=== PATIENT | female | born 1985 | race Caucasian/White ===

== ENCOUNTER 2016-04-25 01:17 | Emergency (ER) | payer OTHER ==
--- NOTE | 2016-04-25 01:53 | PDOC ---
History of Present Illness - History of Present Illness Initial Comments: 04/25/16 02:13 The patient is a 30 year old female, , with no significant past medical history, who presents to the emergency department with abdominal pain since yesterday morning. The patient states she ate a Snickers bar and developed an immediate sudden onset of sharp, intermittent abdominal cramping localized to the bilateral upper abdominal quadrants. She denies experiencing this pain in the past. She reports taking motrin for pain with minimal relief. She denies chest pain, shortness of breath, headache and dizziness. She denies fever, chills, nausea, vomit, diarrhea and constipation. She denies dysuria, frequency, urgency and hematuria. Allergies: NKDA Social history: Denies toxic habits PCP - Dr. Perera <Meena Diaz - Last Filed: 04/25/16 02:13> <Sal Locke - Last Filed: 04/26/16 00:07> - General Stated Complaint: STOMACH PAIN Past History <Meena Diaz - Last Filed: 04/25/16 02:13> - Reproductive History (#): 4 Para: 4 Cervical CA: No Dysfunctional Uterine Bleeding: No Ectopic : No Endometrial CA: No Polycystic Ovaries: No Tubal Ligation: No - Immunization History Immunization Up to Date: Yes - Psycho/Social/Smoking Cessation Hx Anxiety: No Suicidal Ideation: No Smoking Status: Yes Smoking History: Current every day smoker Have you smoked in the past 12 months: Yes Number of Cigarettes Smoked Daily: 12 'Breaking Loose' booklet given: 05/24/13 Hx Alcohol Use: No Drug/Substance Use Hx: No Substance Use Type: None <Sal Locke - Last Filed: 04/26/16 00:07> - Past Medical History Allergies/Adverse Reactions: Allergies Allergy/AdvReac Type Severity Reaction Status Date / Time No Known Allergies Allergy Verified 04/25/16 02:04 Home Medications: Ambulatory Orders NK [No Known Home Medication] 05/19/15 Review of Systems - Review of Systems Able to Perform ROS?: Yes Comments:: 04/25/16 02:13 CONSTITUTIONAL: Absent: fever, chills, diaphoresis, generalized weakness, malaise, loss of appetite HEENT: Absent: rhinorrhea, nasal congestion, throat pain, throat swelling, difficulty swallowing, mouth swelling, ear pain, eye pain, visual Changes CARDIOVASCULAR: Absent: chest pain, syncope, palpitations, irregular heart rate, lightheadedness , peripheral edema RESPIRATORY: Absent: cough, shortness of breath, dyspnea with exertion, orthopnea, wheezing, stridor, hemoptysis GASTROINTESTINAL: (+) RUQ and LUQ abdominal pain. Absent: abdominal distension, nausea, vomiting, diarrhea, constipation, melena, hematochezia GENITOURINARY: Absent: dysuria, frequency, urgency, hesitancy, hematuria, flank pain, genital pain MUSCULOSKELETAL: Absent: myalgia, arthralgia, joint swelling SKIN: Absent: rash, itching, pallor HEMATOLOGIC/IMMUNOLOGIC: Absent: easy bleeding, easy bruising, lymphadenopathy, frequent infections ENDOCRINE: Absent: unexplained weight gain, unexplained weight loss, heat intolerance, cold intolerance NEUROLOGIC: Absent: headache, focal weakness or paresthesias, dizziness, unsteady gait, seizure, mental status changes, bladder or bowel incontinence PSYCHIATRIC: Absent: anxiety, depression, suicidal or homicidal ideation, hallucinations. <Meena Diaz - Last Filed: 04/25/16 02:13> *Physical Exam - Vital Signs Last Vital Signs Temp Pulse Resp BP Pulse Ox 98.0 F 90 20 113/67 97 04/25/16 02:05 04/25/16 02:05 04/25/16 02:05 04/25/16 02:05 04/25/16 02:05 - Physical Exam Comments: 04/25/16 02:13 GENERAL: Well developed, well nourished. Awake and alert. No acute distress. HEENT: Normocephalic, atraumatic. PERRLA, EOMI. No conjunctival pallor. Sclera are non- icteric. Moist mucous membranes. Oropharynx is clear. NECK: Supple. Full ROM. No JVD. Carotid pulses 2+ and symmetric, without bruits. No thyromegaly. No lymphadenopathy. CARDIOVASCULAR: Regular rate and rhythm. No murmurs, rubs, or gallops. Distal pulses are 2+ and symmetric. PULMONARY: No evidence of respiratory distress. Lungs clear to auscultation bilaterally. No wheezing, rales or rhonchi. ABDOMINAL: (+) right upper quadrant and periumbilical tenderness to palpation. Soft. Non- distended. No rebound or guarding. No organomegaly. Normoactive bowel sounds. MUSCULOSKELETAL Normal range of motion at all joints. No bony deformities or tenderness. No CVA tenderness. EXTREMITIES: No cyanosis. No clubbing. No edema. No calf tenderness. SKIN: Warm and dry. Normal capillary refill. No rashes. No jaundice. NEUROLOGICAL: Alert, awake, appropriate. Cranial nerves 2-12 intact. Normoreflexic in the upper and lower extremities. Normal speech. Toes are down-going bilaterally. Gait is normal without ataxia. PSYCHIATRIC: Cooperative. Good eye contact. Appropriate mood and affect. <Meena Diaz - Last Filed: 04/25/16 02:13> ED Treatment Course - LABORATORY CBC & Chemistry Diagram: 04/25/16 02:12 04/25/16 02:12 <Sal Locke - Last Filed: 04/26/16 00:07> *DC/Admit/Observation/Transfer - Attestations Scribe Attestion: 04/25/16 02:14 Documentation prepared by Meena Diaz, acting as medical coding specialist for Sal Locke MD, MD <Meena Diaz - Last Filed: 04/25/16 02:13> - Discharge Dispostion Admit: No <Sal Locke - Last Filed: 04/26/16 00:07> Diagnosis at time of Disposition: Generalized abdominal pain - Discharge Dispostion Disposition: HOME Condition at time of disposition: Improved - Referrals Referrals: Larry Dsouza MD [Staff Physician] - Jade Perera MD [Primary Care Provider] - - Patient Instructions Printed Discharge Instructions: DI for Gastritis Additional Instructions: Activity as tolerated. Stay hydrated. Advance diet as tolerated, avoiding dairy , spicy or fatty foods, caffeine and alcohol. Blood tests, a urine test, and an ultrasound of the gallbladder showed no acute abnormalities today. Your symptoms may have been due to gastritis or dysmotility , as discussed. Take Pepcid as needed as an antacid, this is available over-the- counter. You should follow up with Dr. Darryl Quinteros and a data control assistant (consider calling Dr. Dsouza) as soon as possible regarding today's emergency department visit. Return to the emergency department for any new or concerning symptoms, particularly persistent or worsening pain, vomiting or diarrhea, fevers or chills. - Post Discharge Activity Work/School Note: Back to Work
[2016-04-25] MEDS ORDERED: FAMOTIDINE 20 MG/50 ML IVPB 50 ML IVPB ONE ×2 (01:55→02:17)
[2016-04-25] MEDS ORDERED: METOCLOPRAMIDE HCL INJECTION 10 MG/2 ML VIAL IVPB ONE (01:55)
[2016-04-25] MEDS ORDERED: SODIUM CHLORIDE 1,000 ML IV SCH (02:00)
[2016-04-25 02:11] VITALS: BMI 24.0
[2016-04-25] MEDS ORDERED: METOCLOPRAMIDE HCL INJECTION 10 MG/2 ML VIAL ONE (02:17)
[2016-04-25 02:20] LABS: BASOPHIL 0.5 % (0-2.0); EOSINOPHIL 0.9 % (0-4.5); MCH 31.4 pg (25.7-33.7); MCHC 33.5 g/dl (32.0-36.0); MEAN CELL VOLUME 93.9 fl (80-96); MEAN PLT VOLUME 9.9 fl (7.5-11.1); NEUTROPHILS 76.4 % (42.8-82.8); PLATELET COUNT 155 K/MM3 (134-434); RDW 13.7 % (11.6-15.6); WHITE BLOOD COUNT 10.1 K/mm3 (4.0-10.0)
[2016-04-25 02:30] LABS: URINE APPEARANCE CLEAR; URINE BILIRUBIN NEGATIVE (NEGATIVE); URINE BLOOD NEGATIVE (NEGATIVE); URINE COLOR YELLOW; URINE GLUCOSE (UA) NEGATIVE (NEGATIVE); URINE KETONE TRACE (NEGATIVE); URINE LEUK ESTERASE NEGATIVE (NEGATIVE); URINE NITRITE NEGATIVE (NEGATIVE); URINE PROTEIN NEGATIVE (NEGATIVE); URINE UROBILINOGEN 4.0 E.U/dl E.U./dl (0.2-1.0)
[2016-04-25 02:48] LABS: ANION GAP 9 (8-16); BILIRUBIN,TOTAL 0.8 mg/dL (0.2-1.0); CALCIUM 9.2 mg/dL (8.5-10.1); CO2 28 mmol/L (21-32); CREATININE 0.7 mg/dL (0.55-1.02); GLUCOSE,RANDOM 122 mg/dL (74-106); SGOT/AST 15 U/L (15-37); SGPT/ALT 13 U/L (12-78)
[2016-04-25 02:49] LABS: ALK PHOS 35 U/L (45-117)
[2016-04-25 10:12] VITALS: BP 113/69; PULSE 88; TEMP 98.3
--- NOTE | 2016-04-25 10:26 | PDOC ---
*Physical Exam - Vital Signs Last Vital Signs Temp Pulse Resp BP Pulse Ox 98.3 F 88 18 113/69 100 04/25/16 10:11 04/25/16 10:11 04/25/16 10:11 04/25/16 10:11 04/25/16 10:11 - Physical Exam Comments: 04/25/16 10:23 vital signs normal. Abdomen is soft/nontender/nondistended. No guarding or rebound, no CVA tenderness. Patient is well-appearing, tolerating by mouth, comfortable ED Treatment Course - LABORATORY CBC & Chemistry Diagram: 04/25/16 02:12 04/25/16 02:12 - ADDITIONAL ORDERS Additional order review: Laboratory Results 04/25/16 04/25/16 02:20 02:12 Sodium 140 Potassium 3.6 Chloride 103 Carbon Dioxide 28 Anion Gap 9 BUN 14 D Creatinine 0.7 D Creat Clearance w eGFR > 60 Random Glucose 122 H D Calcium 9.2 Total Bilirubin 0.8 AST 15 ALT 13 Alkaline Phosphatase 35 L D Total Protein 7.0 Albumin 4.0 Lipase 104 Urine Color Yellow Urine Appearance Clear Urine pH 5.0 Ur Specific [place] 1.033 Urine Protein Negative Urine Glucose (UA) Negative Urine Ketones Trace H Urine Blood Negative Urine Nitrite Negative Urine Bilirubin Negative Urine Urobilinogen 4.0 e.u/dl H Ur Leukocyte Esterase Negative Urine HCG, Qual Negative 04/25/16 02:12 RBC 3.76 MCV 93.9 MCHC 33.5 RDW 13.7 MPV 9.9 Neutrophils % 76.4 Lymphocytes % 14.8 Monocytes % 7.4 Eosinophils % 0.9 Basophils % 0.5 - Medications Given in the ED: ED Medications Discontinued Medications Generic Name Dose Route Start Last Admin Trade Name Freq PRN Reason Stop Dose Admin Famotidine/Sodium Chloride 50 mls @ 100 mls/hr 04/25/16 01:55 04/25/16 02:31 Pepcid 20 Mg Premixed Ivpb - IVPB 04/25/16 02:24 100 mls/hr ONCE ONE Administration Metoclopramide HCl 10 mg 04/25/16 01:55 04/25/16 02:31 Reglan Injection - IVPB 04/25/16 01:56 10 mg ONCE ONE Administration Medical Decision Making - Medical Decision Making 04/25/16 10:23 Received signout on this otherwise healthy 30-year-old female with no severe past medical history, history of bilateral tubal ligation who presented with abdominal pain. Labs were within normal limits, urinalysis and urine were negative, plan at signout was to check abdominal ultrasound and discharge if no cholecystitis. Ultrasound normal, no gallstones. Patient reassessed, abdomen benign. Tolerating by mouth. Question gastritis versus dysmotility, will start on Pepcid and referred to GI. Understands return criteria. *DC/Admit/Observation/Transfer Diagnosis at time of Disposition: Generalized abdominal pain - Discharge Dispostion Disposition: HOME Condition at time of disposition: Improved - Referrals Referrals: Jade Perera MD [Primary Care Provider] - Larry Dsouza MD [Staff Physician] - - Patient Instructions Printed Discharge Instructions: DI for Gastritis Additional Instructions: Activity as tolerated. Stay hydrated. Advance diet as tolerated, avoiding dairy , spicy or fatty foods, caffeine and alcohol. Blood tests, a urine test, and an ultrasound of the gallbladder showed no acute abnormalities today. Your symptoms may have been due to gastritis or dysmotility , as discussed. Take Pepcid as needed as an antacid, this is available over-the- counter. You should follow up with Dr. Darryl Quinteros and a web applications programmer (consider calling Dr. Dsouza) as soon as possible regarding today's emergency department visit. Return to the emergency department for any new or concerning symptoms, particularly persistent or worsening pain, vomiting or diarrhea, fevers or chills. - Post Discharge Activity Work/School Note: Back to Work
== END 2016-04-25 10:43 | disposition home or self-care (01) ==
LOC: JER 01:17
PROC: 3E0337Z Introduction of Electrolytic and Water Balance Substance into Peripheral Vein, Percutaneous Approach (ICD-10-PCS; principal; 2016-04-25)
PROC: 3E033GC Introduction of Other Therapeutic Substance into Peripheral Vein, Percutaneous Approach (ICD-10-PCS; 2016-04-25)
DX: K29.70 Gastritis, unspecified, without bleeding (principal)
CPT/HCPCS: 36415; 76705-TC; 80053; 81003; 83690; 84703; 85025; 87077; 87086; 96361; 96365; 96375; 99282-25

== ENCOUNTER 2017-07-23 18:17 | Emergency (ER) | payer OTHER ==
[2017-07-23 18:32] VITALS: BP 108/62; PULSE 83; TEMP 98.5; BMI 21.2
[2017-07-23] MEDS ORDERED: ACETAMINOPHEN 500 MG TABLET (FP) PO ONE (19:21)
[2017-07-23] MEDS ORDERED: ACETAMINOPHEN 325 MG TABLET (FP) ONE (19:23)
--- NOTE | 2017-07-23 19:28 | PDOC ---
History of Present Illness - General Chief Complaint: Sore Throat Stated Complaint: PAIN Time Seen by Provider: 07/23/17 18:43 History Source: Patient Exam Limitations: No Limitations - History of Present Illness Initial Comments: 07/23/17 19:26 this is a 31-year-old woman past medical history rosacea and migraines who presents emergency Department with 2 days of sore throat and 1 day of frontal headaches and nausea. Patient denies any fevers. Patient states her current headache is 6/10 she took Motrin prior to arrival which helped alleviate some of the pain. She states the pain is not consistent with her usual migraine headache. She denies any blurry vision, dizziness, lightheadedness, chest pain, shortness of breath. Past History - Past Medical History Allergies/Adverse Reactions: Allergies Allergy/AdvReac Type Severity Reaction Status Date / Time No Known Allergies Allergy Verified 07/23/17 18:28 Home Medications: Ambulatory Orders NK [No Known Home Medication] 05/19/15 COPD: No Other medical history: MIGRANE - Reproductive History (#): 4 Para: 4 Cervical CA: No Dysfunctional Uterine Bleeding: No Ectopic : No Endometrial CA: No Polycystic Ovaries: No Tubal Ligation: No - Immunization History Immunization Up to Date: Yes - Suicide/Smoking/Psychosocial Hx Smoking Status: Yes Smoking History: Former smoker Have you smoked in the past 12 months: No Number of Cigarettes Smoked Daily: 12 Information on smoking cessation initiated: No 'Breaking Loose' booklet given: 05/24/13 Hx Alcohol Use: No Drug/Substance Use Hx: No Substance Use Type: None Review of Systems - Review of Systems Able to Perform ROS?: Yes Is the patient limited Setswana proficient: No Constitutional: No: Symptoms Reported HEENTM: Yes: See HPI Respiratory: Yes: See HPI Cardiac (ROS): No: Symptoms Reported ABD/GI: Yes: See HPI : No: Symptoms Reported Musculoskeletal: No: Symptoms Reported Integumentary: No: Symptoms Reported Neurological: Yes: See HPI Endocrine: No: Symptoms Reported Hematologic/Lymphatic: No: Symptoms Reported *Physical Exam - Vital Signs Last Vital Signs Temp Pulse Resp BP Pulse Ox 98.5 F 83 19 108/62 97 07/23/17 18:28 07/23/17 18:28 07/23/17 18:28 07/23/17 18:28 07/23/17 18:28 - Physical Exam General Appearance: Yes: Appropriately Dressed. No: Apparent Distress HEENT: positive: Pharyngeal Erythema, Nasal Congestion, Sinus Tenderness. negative: Tonsillar Exudate, Tonsillar Erythema Neck: positive: Trachea midline, Lymphadenopathy (R), Lymphadenopathy (L) Respiratory/Chest: positive: Lungs Clear, Normal Breath Sounds. negative: Respiratory Distress, Accessory Muscle Use Cardiovascular: positive: Regular Rhythm, Regular Rate. negative: Murmur Gastrointestinal/Abdominal: positive: Normal Bowel Sounds, Soft. negative: Tender Musculoskeletal: positive: Normal Inspection. negative: CVA Tenderness Extremity: positive: Normal Inspection Integumentary: positive: Normal Color Neurologic: positive: tapper bit II-XII NML intact, Fully Oriented, Alert, Normal Mood/ Affect, Normal Response, Motor Strength 07/15 Medical Decision Making - Medical Decision Making 07/23/17 19:23 A/P: 31-year-old woman with history of migraines and rosacea presents emergency Department with sore throat for 2 days and frontal headache and nausea for 1 to Pharyngeal erythema noted no tonsillar erythema or exudates present Maxillary sinus tenderness present Laboratory data 3. Cranial 2 through 12 grossly intact. Steady gait Lungs clear to auscultation bilaterally Rapid strep testing, Tylenol, reassess 07/23/17 19:50 Rapid strep testing is negative. Patient states her headache is improved after receiving the Tylenol. Headache results likely from current menstruation. I'll instruct the patient to keep well-hydrated and to take Tylenol or Motrin to help relieve symptoms of both the headache and also the sore throat. Was explained to the patient that formal culture may be positive and at that time we will call her prescribed antibiotics. Patient verbalizes understanding of discharge instructions. *DC/Admit/Observation/Transfer Diagnosis at time of Disposition: Viral syndrome Menstrual headache Qualifiers: Status migrainosus presence: without status migrainosus Intractability: not intractable Qualified Code(s): G43.829 - Menstrual migraine, not intractable, without status migrainosus - Discharge Dispostion Disposition: HOME Condition at time of disposition: Fair Decision to Admit order: No - Referrals - Patient Instructions Additional Instructions: Rest, drink lots of fluids: Teas, water, soups, Pedialyte Saltwater gargles Steamy showers/seem to face break up mucus Avoid contact with others until fevers and cough resolved Lots of handwashing and good hygiene Continue [id number] medications for symptomatic relief Tylenol or Motrin for fever and pain Followup with private physician in one to 2 days as needed Return to emergency department for worsened symptoms, fevers, dehydration - Post Discharge Activity
== END 2017-07-23 20:07 | disposition home or self-care (01) ==
LOC: JERFT 18:17
DX: G43.829 Menstrual migraine, not intractable, without status migrainosus (principal); L71.9 Rosacea, unspecified
CPT/HCPCS: 87070; 87430; 99281-25

== ENCOUNTER 2020-12-25 20:50 | Emergency (ER) | payer OTHER ==
[2020-12-25] MEDS ORDERED: ACETAMINOPHEN 500 MG TABLET (FP) PO ONE (21:12)
[2020-12-25 21:13] VITALS: BP 113/57; PULSE 79; TEMP 99.2; BMI 22.8
[2020-12-25] MEDS ORDERED: ACETAMINOPHEN 500 MG TABLET (FP) ONE (21:15)
== END 2020-12-26 00:03 | disposition home or self-care (01) ==
LOC: FER 20:50
DX: S16.1XXA Strain of muscle, fascia and tendon at neck level, initial encounter (principal); V49.9XXA Car occupant (driver) (passenger) injured in unspecified traffic accident, initial encounter
CPT/HCPCS: 70450-TC; 72125-TC; 99284-25

== ENCOUNTER 2020-12-27 12:22 | Emergency (ER) | payer OTHER ==
[2020-12-27 12:46] VITALS: BP 105/69; PULSE 83; TEMP 98; BMI 22.8
== END 2020-12-27 17:30 | disposition home or self-care (01) ==
LOC: JERFT 12:22
DX: M25.551 Pain in right hip (principal)
CPT/HCPCS: 73523-TC-FY; 99284-25

== ENCOUNTER 2022-05-03 15:50 | Emergency (ER) | payer OTHER ==
[2022-05-03 16:01] VITALS: BP 125/61; RESP 16; TEMP 98; BMI 24.0
[2022-05-03 17:12] VITALS: PULSE 87
[2022-05-03] MEDS ORDERED: predniSONE 20 MG TABLET (UD) PO ONE (17:13)
[2022-05-03 17:20] LABS: BASO % 0.5 % (0-2.0); HEMATOCRIT 38.5 % (32.4-45.2); HEMOGLOBIN 12.8 GM/dL (10.7-15.3); LYMPH % 15.3 % (8-40); MCH 30.8 pg (25.7-33.7); MCHC 33.3 g/dl (32.0-36.0); MEAN CELL VOLUME 92.5 fl (80-96); MEAN PLT VOLUME 9.2 fl (7.5-11.1); NEUT % 75.2 % (42.8-82.8); PLATELET COUNT 250 10^3/uL (134-434); RBC 4.17 M/mm3 (3.60-5.2); RDW 13.9 % (11.6-15.6); WHITE BLOOD COUNT 9.2 K/mm3 (4.0-10.0)
[2022-05-03] MEDS ORDERED: predniSONE 20 MG TABLET (UD) ONE ×2 (17:29→17:57)
[2022-05-03 17:40] LABS: CALCIUM 9.3 mg/dL (8.5-10.1)
[2022-05-03 17:41] LABS: ALBUMIN 3.7 g/dl (3.4-5.0); BLOOD UREA NITROGEN 17.5 mg/dL (7-18)
[2022-05-03 17:44] LABS: CREATININE 0.7 mg/dL (0.55-1.3)
[2022-05-03 17:46] LABS: BILIRUBIN,TOTAL 0.5 mg/dL (0.2-1); TOT PROT 7.4 g/dl (6.4-8.2)
== END 2022-05-03 18:59 | disposition home or self-care (01) ==
LOC: JER 15:50 → JERFT 15:50
PROC: 3E023GC Introduction of Other Therapeutic Substance into Muscle, Percutaneous Approach (ICD-10-PCS; principal; 2022-05-03)
DX: L25.9 Unspecified contact dermatitis, unspecified cause (principal)
CPT/HCPCS: 36415; 73562-TC-RT-FY; 80053; 85025; 99284-25